=== PATIENT | male | born 1970 | race Native Hawaiian/Other Pacific Islander ===

== ENCOUNTER 2017-06-03 11:03 | Emergency (ER) | payer OTHER ==
[2017-06-03 11:21] VITALS: RESP 18
[2017-06-03] MEDS ORDERED: Sodium Chloride 0.9% 1,000 ML IV ONE ×2 (11:59→13:09)
[2017-06-03] MEDS ORDERED: Sodium Chloride 0.9% 1,000 ML ONE (12:21)
--- NOTE | 2017-06-03 12:27 | RAD ---
HISTORY: fever COMPARISON: No prior. FINDINGS: LUNGS: Ill-defined opacity at left lung base. Nonspecific. Differential diagnosis includes consolidation, neoplasm or non calcified pleural plaque. Followup to clearing is advised. . PLEURA: No significant pleural effusion identified, no pneumothorax apparent. CARDIOVASCULAR: Normal. OSSEOUS STRUCTURES: No significant abnormalities. VISUALIZED UPPER ABDOMEN: Normal. OTHER FINDINGS: None. IMPRESSION: Opacity at left lung base. Possible pneumonia. Followup to clearing is advised. .
--- NOTE | 2017-06-03 12:33 | C.PDOC ---
History Of Present Illness 46 yr old male presents to the ER with complaints of fever and dry cough for the past 6 days and headache since last night. Patient states he was seen by PMD few days ago and was given cough syrup and also has been taking Advil for the fever. Patient denies any medical history. Denies chest pain, SOB, nausea, vomiting, weakness or numbness. Time Seen by Provider: 06/03/17 11:48 Chief Complaint (Nursing): Headache History Per: Patient History/Exam Limitations: no limitations Onset/Duration Of Symptoms: Days (6), Sudden Onset (Headache since last night ) Current Symptoms Are (Timing): Still Present Sick Contacts (Context): None Past Medical History Reviewed: Historical Data, Nursing Documentation, Vital Signs Vital Signs: Last Vital Signs Temp 102.8 F H 06/03/17 11:17 Pulse 93 H 06/03/17 11:17 Resp 18 06/03/17 11:17 BP 141/90 06/03/17 11:17 Pulse Ox 99 06/03/17 12:55 Family History: States: No Known Family Hx - Social History Hx Alcohol Use: Yes Hx Substance Use: No - Immunization History Hx Tetanus Toxoid Vaccination: No Hx Influenza Vaccination: Yes Hx Pneumococcal Vaccination: No Review Of Systems Except As Marked, All Systems Reviewed And Found Negative. Constitutional: Positive for: Fever (Subjective ) Cardiovascular: Negative for: Chest Pain Respiratory: Positive for: Cough (Dry ). Negative for: Shortness of Breath Gastrointestinal: Negative for: Nausea, Vomiting Neurological: Positive for: Headache. Negative for: Weakness, Numbness Physical Exam - Physical Exam Appears: Non-toxic, No Acute Distress Skin: Warm, Dry, No Rash Head: Atraumatic, Normacephalic Eye(s): bilateral: Normal Inspection, PERRL, EOMI Oral Mucosa: Moist Throat: Normal, No Erythema, No Exudate, No Drooling Neck: Normal, Normal ROM, Supple Chest: Symmetrical, No Tenderness Cardiovascular: Rhythm Regular, No Murmur Respiratory: Normal Breath Sounds, No Rales, No Rhonchi, No Wheezing Gastrointestinal/Abdominal: Normal Exam, Soft, No Tenderness, No Guarding, No Rebound Back: Normal Inspection Extremity: Normal ROM, No Swelling Neurological/Psych: Oriented x3, Normal Speech, Normal Motor ED Course And Treatment O2 Sat by Pulse Oximetry: 99 - Other Rad CXR X-Ray: Viewed By Me, Read By Radiologist Interpretation: HISTORY: fever. COMPARISON: No prior. FINDINGS: LUNGS: Ill -defined opacity at left lung base. Nonspecific. Differential diagnosis includes consolidation, neoplasm or non calcified pleural plaque. Followup to clearing is advised. . PLEURA: No significant pleural effusion identified, no pneumothorax apparent. CARDIOVASCULAR: Normal. OSSEOUS STRUCTURES: No significant abnormalities. VISUALIZED UPPER ABDOMEN: Normal. OTHER FINDINGS: None. IMPRESSION: Opacity at left lung base. Possible pneumonia. Followup to clearing is advised. - CT Scan/US CT - Head Other Rad Studies (CT/US): Read By Radiologist, Radiology Report Reviewed CT/US Interpretation: PROCEDURE: CT HEAD WITHOUT CONTRAST. HISTORY: Headache. COMPARISON: None available. TECHNIQUE: Axial computed tomography images were obtained through the head/brain without intravenous contrast. Radiation dose: Total exam DLP = 981.84 mGy-cm. This CT exam was performed using one or more of the following dose reduction techniques: Automated exposure control, adjustment of the mA and/or kV according to patient size, and/ or use of iterative reconstruction technique. FINDINGS: HEMORRHAGE: No intracranial hemorrhage. BRAIN: El-white matter differentiation is preserved. There is no mass, mass effect or abnormal extra-axial fluid collection. There is no territorial infarction. VENTRICLES: The ventricles are normal in size, shape and configuration. 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 CALVARIUM: The skull base and calvarium are normal number. PARANASAL SINUSES: Predominantly clear. MASTOID AIR CELLS: Predominantly clear. OTHER FINDINGS: None. IMPRESSION: No acute intracranial abnormality. Medical Decision Making Medical Decision Making: cxr- LLL opacity I disc results w the pt and rec admission however he does not want to stay. Dose of rocephin and azithro IV in ED and augmentin/azithro for home. follow up w Dr Haider . return if worse. Disposition - Disposition Disposition Time: 13:13 Condition: STABLE - Clinical Impression Clinical Impression: Pneumonia - Scribe Statement The provider has reviewed the documentation as recorded by the Trevoribmike Emanuel Provider Attestation: All medical record entries made by the Trevoribmike were at my direction and personally dictated by me. I have reviewed the chart and agree that the record accurately reflects my personal performance of the history, physical exam, medical decision making, and the department course for this patient. I have also personally directed, reviewed, and agree with the discharge instructions and disposition.
--- NOTE | 2017-06-03 12:44 | CT ---
PROCEDURE: CT HEAD WITHOUT CONTRAST. HISTORY: Headache COMPARISON: None available. TECHNIQUE: Axial computed tomography images were obtained through the head/brain without intravenous contrast. Radiation dose: Total exam DLP = 981.84 mGy-cm. This CT exam was performed using one or more of the following dose reduction techniques: Automated exposure control, adjustment of the mA and/or kV according to patient size, and/or use of iterative reconstruction technique. FINDINGS: HEMORRHAGE: No intracranial hemorrhage. BRAIN: El-white matter differentiation is preserved. There is no mass, mass effect or abnormal extra-axial fluid collection. There is no territorial infarction. VENTRICLES: The ventricles are normal in size, shape and configuration. 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 CALVARIUM: The skull base and calvarium are normal number. PARANASAL SINUSES: Predominantly clear. MASTOID AIR CELLS: Predominantly clear. OTHER FINDINGS: None. IMPRESSION: No acute intracranial abnormality.
[2017-06-03] MEDS ORDERED: Azithromycin 500 MG in Sodium Chloride 0.9% 250 ML IVPB STA (13:09)
[2017-06-03] MEDS ORDERED: cefTRIAXone IV 1 gm in Dextros 50 ML IVPB ONE (13:22)
[2017-06-03] MEDS ORDERED: Azithromycin 500mg/250ML NS 500 MG/250 ML BAG IVPB ONE (13:22)
[2017-06-03 13:58] LABS: BASO % 0.4 % (0.0-2.0); EOS % 0.1 % (0.0-4.0); HEMOGLOBIN 14.7 g/dL (12.0-18.0); LYMPH # 1.1 K/uL (1.0-4.3); LYMPH % 13.9 % (20.0-40.0); MEAN CELL VOLUME 90.4 fL (80.0-94.0); MEAN CORPUSCULAR HEMOGLOBIN 30.9 pg (27.0-31.0); MEAN CORPUSCULAR HGB CONC 34.2 g/dL (33.0-37.0); MEAN PLATELET VOLUME 8.7 fL (7.2-11.7); MONO # 1.2 K/uL (0.0-0.8); MONO % 15.2 % (0.0-10.0); NEUT # 5.5 K/uL (1.8-7.0); NEUT % 70.4 % (50.0-75.0); NRBC % 0.4 % (0.0-2.0); RBC 4.76 Mil/uL (4.40-5.90); RED CELL DISTRIBUTION WIDTH 12.4 % (11.5-14.5); WHITE BLOOD COUNT 7.8 K/uL (4.8-10.8)
[2017-06-03 14:04] LABS: SQUAMOUS EPITHIAL 1 /hpf (0-5); URINE BILIRUBIN NEGATIVE (NEGATIVE); URINE BLOOD 2+ (NEGATIVE); URINE CLARITY Hazy (Clear); URINE COLOR Amber (YELLOW); URINE GLUCOSE (UA) NORMAL (Normal); URINE LEUKOCYTE ESTERASE NEG Leu/uL (Negative); URINE NITRATE NEGATIVE (NEGATIVE); URINE PROTEIN 1+ mg/dL (NEGATIVE)
[2017-06-03 14:08] LABS: ALBUMIN 3.9 g/dL (3.5-5.0)
[2017-06-03 14:11] LABS: ALB/GLOB RATIO 0.9 (1.0-2.1); ALT/SGPT 36 U/L (21-72); AST/SGOT 36 U/L (17-59); BLOOD UREA NITROGEN 8 mg/dL (9-20); CALCIUM 8.8 mg/dl (8.6-10.4); GFR AFRICAN-AMERICAN > 60; GFR NON-AFRICAN AMERICAN > 60
[2017-06-03 15:54] VITALS: BP 114/79; PULSE 91; TEMP 98.9; O2SAT 98
== END 2017-06-03 15:58 | disposition home or self-care (01) ==
LOC: C.ER 11:03 → C.9E 13:09 → UNDOADMOB 13:09 → C.ER 15:58
DX: J18.9 Pneumonia, unspecified organism (principal)
CPT/HCPCS: 70450; 71010; 80053; 81001; 85025; 87040; 87086; 87804; 96374; 96375; 99285; J0456; J0696; J7040; J7050